=== PATIENT | male | born 1990 | race Caucasian/White ===

== ENCOUNTER → 2019-07-27 | Emergency (ER) | payer MEDICAID ==
[~2019-07-27] VITALS: Ht 167.6 cm; Wt 86.0 kg
[~2019-07-27] MED LIST: ALBU8.5H8 INH; GUAI120L55 PO; PRED20TA PO
[2019-07-27 05:59] LABS: BASOPHILS % (AUTO) 0.2 % (0-1); EOSINOPHILS % (AUTO) 0.4 % (0-6); HEMATOCRIT 46.1 % (42.0-52.0); HEMOGLOBIN 15.7 g/dl (14.0-17.9); LYMPHOCYTES # (AUTO) 0.9 X10'3 (1.1-4.8); LYMPHOCYTES % (AUTO) 11.2 % (21-51); MEAN CORPUSCULAR HEMOGLOBIN 27.7 PG (27.0-31.0); MEAN CORPUSCULAR VOLUME 81.4 FL (78-98); MEAN PLATELET VOLUME 7.9 FL (7.4-10.4); MONOCYTES # (AUTO) 0.6 X10'3 (0-0.9); MONOCYTES % (AUTO) 7.6 % (2-12); NEUTROPHILS # (AUTO) 6.2 X10'3 (1.8-7.7); NEUTROPHILS % (AUTO) 80.6 % (42-75); PLATELET COUNT 230 X10'3 (140-440); RED BLOOD COUNT 5.66 X10'6 (4.70-6.10); RED CELL DISTRIBUTION WIDTH 14.7 % (11.5-14.5); WHITE BLOOD COUNT 7.7 X10'3 (4.5-11.0)
[2019-07-27 06:13] LABS: D-DIMER 0.34 MG/L FEU (0-0.50)
[2019-07-27 06:21] LABS: ALANINE AMINOTRANSFERASE 25 U/L (12-78); ALBUMIN 4.6 G/DL (3.4-5.0); ALBUMIN/GLOBULIN RATIO 1.2 (1.1-1.5); ALKALINE PHOSPHATASE 101 IU/L (46-116); ANION GAP 10 (8-16); ASPARTATE AMINO TRANSFERASE 22 U/L (10-37); BILIRUBIN,TOTAL 0.3 MG/DL (0.1-1.0); BLOOD UREA NITROGEN 11 MG/DL (7-18); BUN/CREATININE RATIO 9.8 (5.4-32.0); CALCIUM 9.7 MG/DL (8.5-10.1); CHLORIDE 106 MMOL/L (99-107); CREATININE 1.12 MG/DL (0.60-1.10); GLUCOSE 101 MG/DL (70-104); POTASSIUM 3.6 MMOL/L (3.5-5.1); SODIUM 141 MMOL/L (135-145); TOTAL CARBON DIOXIDE 24.7 MMOL/L (24-32); TOTAL PROTEIN 8.6 G/DL (6.4-8.2); eGFR 79 ML/MIN
[2019-07-27 07:05] VITALS: BP 142/86
== END | disposition home or self-care (01) ==
LOC: ER 04:41
DX: J20.9 Acute bronchitis, unspecified (principal); R00.0 Tachycardia, unspecified; Z72.89 Other problems related to lifestyle; Z88.8 Allergy status to other drugs, medicaments and biological substances; Z79.899 Other long term (current) drug therapy
CPT/HCPCS: 36415; 71045; 80053; 84484; 85025; 85379; 93005; 99285

== ENCOUNTER 2019-07-30 19:22 | Emergency (ER) | payer MEDICAID ==
[~2019-07-30] VITALS: Ht 170.2 cm; Wt 88.6 kg
[~2019-07-30 19:22] MED LIST changes: -GUAI120L55 PO
[2019-07-30 19:35] VITALS: BP 181/104
[2019-07-30] MEDS ORDERED: GUAI120L55 PO (20:30)
== END 2019-07-30 20:49 | disposition home or self-care (01) ==
LOC: ER 19:22
DX: B34.9 Viral infection, unspecified (principal); J02.9 Acute pharyngitis, unspecified; R05 Cough; R50.9 Fever, unspecified; R19.7 Diarrhea, unspecified; R00.0 Tachycardia, unspecified; R11.0 Nausea; Z72.89 Other problems related to lifestyle; Z88.8 Allergy status to other drugs, medicaments and biological substances; Z79.899 Other long term (current) drug therapy
CPT/HCPCS: 99282

== ENCOUNTER 2020-02-14 14:04 | Emergency (ER) | payer MEDICAID, OTHER ==
[~2020-02-14] VITALS: Ht 170.2 cm; Wt 89.0 kg
[~2020-02-14 14:04] MED LIST changes: +GUAI120L55 PO; -PRED20TA PO
[2020-02-14 14:35] VITALS: BP 154/98
== END 2020-02-14 16:55 | disposition home or self-care (01) ==
LOC: ER 14:05
DX: S61.411A Laceration without foreign body of right hand, initial encounter (principal); Z72.89 Other problems related to lifestyle; Z88.8 Allergy status to other drugs, medicaments and biological substances; Z79.899 Other long term (current) drug therapy; W19.XXXA Unspecified fall, initial encounter; Y93.89 Activity, other specified; Y92.89 Other specified places as the place of occurrence of the external cause; Y99.8 Other external cause status
CPT/HCPCS: 99281

== ENCOUNTER 2020-02-28 11:03 | Emergency (ER) | payer MEDICAID ==
[~2020-02-28] VITALS: Ht 170.2 cm; Wt 86.0 kg
[2020-02-28 11:06] VITALS: BP 163/92
[2020-02-28] MEDS ORDERED: dexamethasone sod phosphate 10mg/ml inj IM STA (13:12)
== END 2020-02-28 17:26 | disposition home or self-care (01) ==
LOC: ER 11:04
DX: G62.9 Polyneuropathy, unspecified (principal); M62.838 Other muscle spasm; M79.601 Pain in right arm; R20.0 Anesthesia of skin; Z72.89 Other problems related to lifestyle; Z88.1 Allergy status to other antibiotic agents; Z88.6 Allergy status to analgesic agent; Z79.899 Other long term (current) drug therapy
CPT/HCPCS: 96372; 99283; J1100

== ENCOUNTER 2020-06-18 12:42 | Outpatient (CLI) | payer MEDICAID | END 2020-06-18 23:59 | disposition home or self-care (01) | LOC: CARD DIAG 12:42 | PROVIDERS: ATTEND Family Medicine | DX: I08.0 Rheumatic disorders of both mitral and aortic valves (principal); R00.2 Palpitations | CPT/HCPCS: 93306 ==

== ENCOUNTER 2020-10-07 23:49 | Emergency (ER) | payer MEDICAID ==
[~2020-10-07] VITALS: Ht 167.6 cm; Wt 92.5 kg
[2020-10-08] MEDS ORDERED: acetaminophen 325mg tablet PO ONE (00:20)
[2020-10-08] MEDS ORDERED: normal saline 1000ML IV soln IV ONE (02:05)
[2020-10-08 02:35] LABS: BASOPHILS % (AUTO) 0.3 % (0-1); EOSINOPHILS # (AUTO) 0.1 X10'3 (0-0.9); EOSINOPHILS % (AUTO) 4.6 % (0-6); HEMATOCRIT 39.7 % (42.0-52.0); HEMOGLOBIN 13.5 g/dl (14.0-17.9); LYMPHOCYTES # (AUTO) 0.6 X10'3 (1.1-4.8); LYMPHOCYTES % (AUTO) 19.1 % (21-51); MEAN CORPUSCULAR HEMOGLOBIN 30.9 PG (27.0-31.0); MEAN CORPUSCULAR HGB CONC 34.1 g/dL (33.0-36.5); MEAN CORPUSCULAR VOLUME 90.6 FL (78-98); MEAN PLATELET VOLUME 7.6 FL (7.4-10.4); MONOCYTES # (AUTO) 0.5 X10'3 (0-0.9); MONOCYTES % (AUTO) 16.8 % (2-12); NEUTROPHILS # (AUTO) 1.7 X10'3 (1.8-7.7); NEUTROPHILS % (AUTO) 59.2 % (42-75); PLATELET COUNT 157 X10'3 (140-440); RED BLOOD COUNT 4.39 X10'6 (4.70-6.10); RED CELL DISTRIBUTION WIDTH 13.4 % (11.5-14.5)
[2020-10-08 02:46] LABS: ALANINE AMINOTRANSFERASE 28 U/L (12-78); ALBUMIN 3.8 G/DL (3.4-5.0); ALBUMIN/GLOBULIN RATIO 1.2 (1.1-1.5); ALKALINE PHOSPHATASE 64 IU/L (46-116); ANION GAP 13 (8-16); ASPARTATE AMINO TRANSFERASE 25 U/L (10-37); BILIRUBIN,TOTAL 0.3 MG/DL (0.1-1.0); BLOOD UREA NITROGEN 17 MG/DL (7-18); BUN/CREATININE RATIO 14.8 (5.4-32.0); CALCIUM 8.9 MG/DL (8.5-10.1); CHLORIDE 103 MMOL/L (99-107); CREATININE 1.15 MG/DL (0.60-1.10); GLUCOSE 95 MG/DL (70-104); MAGNESIUM 1.8 MG/DL (1.5-2.4); POTASSIUM 3.3 MMOL/L (3.5-5.1); SODIUM 141 MMOL/L (135-145); TOTAL CARBON DIOXIDE 24.6 MMOL/L (24-32); TOTAL PROTEIN 7.1 G/DL (6.4-8.2); eGFR 76 ML/MIN
[2020-10-08 03:07] LABS: PLATELET ESTIMATE NORMAL; TOTAL CELLS COUNTED 100
== END 2020-10-08 03:43 | disposition home or self-care (01) ==
LOC: ER 23:50
DX: B34.9 Viral infection, unspecified (principal); Z20.822 Contact with and (suspected) exposure to COVID-19; R50.9 Fever, unspecified; R11.0 Nausea; R10.31 Right lower quadrant pain; Z72.89 Other problems related to lifestyle; Z88.6 Allergy status to analgesic agent; Z88.8 Allergy status to other drugs, medicaments and biological substances; Z79.899 Other long term (current) drug therapy
CPT/HCPCS: 36415; 74176; 80053; 83605; 83735; 84145; 85007; 85025; 87040; 87635; 99284; C9803; J7030

== ENCOUNTER 2020-12-22 04:43 | Emergency (ER) | payer MEDICAID ==
[~2020-12-22] VITALS: Ht 167.6 cm; Wt 95.0 kg
--- NOTE | 2020-12-22 04:47 | NUR ---
posion control contacted - they recommend the following: labs - cbc, cmp, utox, ASA, APAP, give charcoal watch for hypotension and bradycardia supportive care, if symptomatic, give glucagon 5mg bolus if needed, fluids and pressors can be given also. ekg as well
[2020-12-22] MEDS ORDERED: charcoal, activated 50 GM/240 ML bottle PO ONE (04:55)
[2020-12-22 05:26] LABS: ALANINE AMINOTRANSFERASE 58 U/L (12-78); ALBUMIN 3.9 G/DL (3.4-5.0); ALBUMIN/GLOBULIN RATIO 1.2 (1.1-1.5); ALKALINE PHOSPHATASE 71 IU/L (46-116); ANION GAP 7 (8-16); ASPARTATE AMINO TRANSFERASE 23 U/L (10-37); BILIRUBIN,TOTAL 0.2 MG/DL (0.1-1.0); BLOOD UREA NITROGEN 17 MG/DL (7-18); BUN/CREATININE RATIO 17.5 (5.4-32.0); CALCIUM 9.5 MG/DL (8.5-10.1); CHLORIDE 108 MMOL/L (99-107); CREATININE 0.97 MG/DL (0.60-1.10); GLUCOSE 84 MG/DL (70-104); POTASSIUM 3.8 MMOL/L (3.5-5.1); SODIUM 141 MMOL/L (135-145); TOTAL CARBON DIOXIDE 26.2 MMOL/L (24-32); TOTAL PROTEIN 7.2 G/DL (6.4-8.2); eGFR > 90 ML/MIN
[2020-12-22 05:30] LABS: BASOPHILS % (AUTO) 0.3 % (0-1); EOSINOPHILS # (AUTO) 0.2 X10'3 (0-0.9); EOSINOPHILS % (AUTO) 2.4 % (0-6); HEMATOCRIT 42.3 % (42.0-52.0); HEMOGLOBIN 14.5 g/dl (14.0-17.9); LYMPHOCYTES # (AUTO) 1.7 X10'3 (1.1-4.8); LYMPHOCYTES % (AUTO) 24.8 % (21-51); MEAN CORPUSCULAR HEMOGLOBIN 29.9 PG (27.0-31.0); MEAN CORPUSCULAR HGB CONC 34.3 g/dL (33.0-36.5); MEAN CORPUSCULAR VOLUME 86.9 FL (78-98); MEAN PLATELET VOLUME 7.8 FL (7.4-10.4); MONOCYTES # (AUTO) 0.7 X10'3 (0-0.9); MONOCYTES % (AUTO) 9.9 % (2-12); NEUTROPHILS # (AUTO) 4.4 X10'3 (1.8-7.7); NEUTROPHILS % (AUTO) 62.6 % (42-75); PLATELET COUNT 236 X10'3 (140-440); RED BLOOD COUNT 4.87 X10'6 (4.70-6.10); RED CELL DISTRIBUTION WIDTH 12.8 % (11.5-14.5)
[2020-12-22 05:37] LABS: ETHANOL < 0.010 GM/DL (0.0-0.010)
[2020-12-22 05:38] LABS: ACETAMINOPHEN < 2.0 UG/ML (10-30)
[2020-12-22 06:37] LABS: URINE AMPHETAMINE SCREEN NEGATIVE (Neg); URINE BARBITUATE SCREEN NEGATIVE (Neg); URINE BENZODIAZEPINES SCREEN NEGATIVE (Neg); URINE CANNABINOID SCREEN NEGATIVE (Neg); URINE COCAINE SCREEN NEGATIVE (Neg); URINE METHADONE SCREEN NEGATIVE (Neg); URINE OPIATE SCREEN NEGATIVE (Neg); URINE PHENCYCLIDINE SCREEN NEGATIVE (Neg)
--- NOTE | 2020-12-22 08:12 | NUR ---
SPOKE TO AURELIO DALEY FOR UPDATE ON PT ,LAB WORK UP AND EKGG.INFORMED THAT PT BP IS 108/68 ,HR 57,SPO2 99ON RA,R 14-15.NO SEIZURE ACTIVITY,EKG INTERPERATION DISCUSSED ORDER TO REPEAT EKG RGT NOW AND IF QRS IS ABOVE 120 GIVE 2 AMP OF BICARB..OBSERVE THE PT FOR Q 6HR IF EVERTHING IS FINE PT DO NOT NEED FURTHER OBSERVATION. GIVE IV FLUIDS AND GLUCAGON FOR LOW HR AND LOW BP,BUT RGT NOW PT IS STABLE AND NO NEED FOR FLUDS OR GLUCAGON. WILL FOLLOW THE ORDERS.
--- NOTE | 2020-12-22 09:34 | NUR ---
DR CARTER ASSESSING THE PT RGT NOW ,WILL CONT TO MONITOR,PT IN HALLWAY WE HAD THE EMERGENT PT.
--- NOTE | 2020-12-22 09:35 | NUR ---
QRS 64 NO BICARB NEEDED .WILL CONT TO MONITOR.
--- NOTE | 2020-12-22 10:50 | NUR ---
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 Patient does state that he is depressed and feels like he just needs some medication to help with depression. [facility] has place 5150 on patient. Patient stated that he would like the information shared to the accepting facility that he is a transgender. I stated I would relay the message and make sure the this was shared is SBAR reports. Patient resting comfortably, has no other needs at this time.
--- NOTE | 2020-12-22 12:10 | NUR ---
Patient's aunt at bedside. No distress observed. Continue to monitor.
--- NOTE | 2020-12-22 13:30 | NUR ---
Patient eating lunch. No distress observed. Continue to monitor.
--- NOTE | 2020-12-22 15:10 | NUR ---
Patient awake and laying in bed. RN spoke to patient. Patient denies suicidal ideation and says he is doing better. Patient is upset over the recent breakup with his girlfriend. No distress observed at this time.
--- NOTE | 2020-12-22 16:55 | NUR ---
RN spoke to Dr Ramirez about the order for an EKG. Need comparison. Heart rate is 46. RN spoke to patient and he does not feel dizzy. RN advised patient to report any changes, like dizziness, feeling faint. Patient verbalized understanding. Dr Ramirez aware patient is asymptomatic at this time. Continue to monitor.
--- NOTE | 2020-12-22 20:51 | NUR ---
PCT here to escort patient up to [facility]. Pt denies dizziness. Behavior appropriate and cooperative. Patient belongings given to PCT along with copy of 5150 and med rec. Last set of vital signs documented.
[2020-12-22 21:00] VITALS: BP 121/72
[2020-12-22] MEDS ORDERED: LITH300C PO (21:57)
[2020-12-22] MEDS ORDERED: PROP10TA10 PO (21:57)
[2020-12-22] MEDS ORDERED: TEST200V10 IM (21:57)
[2020-12-22] MEDS ORDERED: OLAN15TA3 PO (21:57)
[2020-12-22] MEDS ORDERED: LISI10TA27 PO (21:57)
== END 2020-12-22 21:09 ==
LOC: ER 04:44
DX: T44.7X2A Poisoning by beta-adrenoreceptor antagonists, intentional self-harm, initial encounter (principal); Z20.822 Contact with and (suspected) exposure to COVID-19; R45.851 Suicidal ideations; I10 Essential (primary) hypertension; Z72.89 Other problems related to lifestyle; Z88.6 Allergy status to analgesic agent; Z88.8 Allergy status to other drugs, medicaments and biological substances; Z79.899 Other long term (current) drug therapy; Y92.89 Other specified places as the place of occurrence of the external cause
CPT/HCPCS: 36415; 80053; 80305; 80320; 80329; 84443; 85025; 87635; 93005; 99285; C9803

== ENCOUNTER 2021-01-04 08:34 | Inpatient (IN) | payer MEDICAID ==
[~2021-01-04] VITALS: Ht 167.6 cm; Wt 85.9 kg
[~2021-01-04 08:34] MED LIST changes: -ALBU8.5H8 INH; -GUAI120L55 PO; +LISI10TA27 PO; +LITH300C PO; +LURA60TA PO; +TEST200V10 IM
[2021-01-04 10:19] LABS: EOSINOPHILS # (AUTO) 0.1 X10'3 (0-0.9); HEMOGLOBIN 13.9 g/dl (14.0-17.9); LYMPHOCYTES # (AUTO) 0.5 X10'3 (1.1-4.8); MEAN PLATELET VOLUME 8.4 FL (7.4-10.4); NEUTROPHILS # (AUTO) 1.9 X10'3 (1.8-7.7); NEUTROPHILS % (AUTO) 66.8 % (42-75); WHITE BLOOD COUNT 2.8 X10'3 (4.5-11.0)
[2021-01-04 10:20] LABS: BASOPHILS % (AUTO) 0.1 % (0-1); EOSINOPHILS % (AUTO) 3.9 % (0-6); HEMATOCRIT 39.8 % (42.0-52.0); LYMPHOCYTES % (AUTO) 16.8 % (21-51); MEAN CORPUSCULAR HEMOGLOBIN 29.7 PG (27.0-31.0); MEAN CORPUSCULAR VOLUME 84.8 FL (78-98); MONOCYTES # (AUTO) 0.4 X10'3 (0-0.9); MONOCYTES % (AUTO) 12.4 % (2-12); PLATELET COUNT 113 X10'3 (140-440); RED BLOOD COUNT 4.69 X10'6 (4.70-6.10); RED CELL DISTRIBUTION WIDTH 12.6 % (11.5-14.5)
[2021-01-04 10:38] LABS: ANION GAP 9 (8-16); BLOOD UREA NITROGEN 12 MG/DL (7-18); BUN/CREATININE RATIO 10.2 (5.4-32.0); CHLORIDE 106 MMOL/L (99-107); CREATININE 1.18 MG/DL (0.60-1.10); GLUCOSE 92 MG/DL (70-104); POTASSIUM 3.9 MMOL/L (3.5-5.1); SODIUM 139 MMOL/L (135-145); TOTAL CARBON DIOXIDE 23.7 MMOL/L (24-32); eGFR 74 ML/MIN
[2021-01-04 10:39] LABS: ALANINE AMINOTRANSFERASE 78 U/L (12-78); ALBUMIN 3.5 G/DL (3.4-5.0); ALKALINE PHOSPHATASE 73 IU/L (46-116); ASPARTATE AMINO TRANSFERASE 46 U/L (10-37); BILIRUBIN,TOTAL 0.3 MG/DL (0.1-1.0); TOTAL PROTEIN 7.1 G/DL (6.4-8.2)
[2021-01-04 10:58] LABS: TOTAL CELLS COUNTED 100
[2021-01-04 10:59] LABS: PLATELET ESTIMATE DECREASED
[2021-01-04] MEDS ORDERED: normal saline 1000ml 1,000 ML IV ONE (11:05)
[2021-01-04] MEDS ORDERED: HYDROcodone/acetaminophen 5mg/325mg tablet PO PRN (11:40)
[2021-01-04] MEDS ORDERED: morphine 2 MG/ML inj. syringe IV PRN ×2 (11:40)
[2021-01-04] MEDS ORDERED: mag hydrox/Alum hydrox/simeth 30ml oral suspension PO PRN (11:40)
[2021-01-04] MEDS ORDERED: magnesium hydroxide 30ml (MOM) UD suspension PO PRN (11:40)
[2021-01-04] MEDS ORDERED: acetaminophen 325mg tablet PO PRN ×2 (11:40)
[2021-01-04] MEDS ORDERED: ondansetron/PF 4mg/2ml inj IV PRN (11:40)
[2021-01-04] MEDS ORDERED: OLAN10TA73 PO (12:24)
[2021-01-04] MEDS ORDERED: TIZA-189 PO (12:24)
[2021-01-04] MEDS: normal saline 1000ml 1,000 ML IV SCH ×2 (12:54→20:29)
[2021-01-04 13:33] LABS: CLARITY,URINE CLOUDY (Clear); COLOR,URINE YELLOW (Yellow); GLUCOSE, URINE NEGATIVE (Neg); KETONES,URINE TRACE mg/dl (Neg); LEUKOCYTE ESTERASE ,URINE TRACE (Neg); NITRITES, URINE NEGATIVE (Neg); OCCULT BLOOD,URINE NEGATIVE (Neg); PH,URINE 6.5 (4.8-8.0); PROTEIN,URINE NEGATIVE (Neg); UROBILINOGEN,URINE 0.2 E.U/dL (0.2-1.0)
[2021-01-04 13:34] LABS: UA COLLECTION TYPE CLN CATCH MIDSTREAM
[2021-01-04 13:43] LABS: HYALINE CASTS >30 /LPF (NEGATIVE); SQUAMOUS EPITHELIAL CELL,UR MANY /LPF (FEW)
[2021-01-04 13:44] LABS: BACTERIA,URINE 1+ /HPF (Neg); RBC,URINE 0-2 /HPF (0-2); TRANSITIONAL EPI CELLS,URINE FEW /HPF
--- NOTE | 2021-01-04 15:48 | NUR ---
Patient in room ED 8. I have received report from teresa meade rn and had the opportunity to ask questions and assume patient care.
--- NOTE | 2021-01-04 18:15 | NUR ---
received pt into room 3018b, oriented to surroundings, v/s taken, denies pain or itching pt provided regular diet, report given to lucille casey @ bedside
[2021-01-04 18:50] VITALS: BP_SYST 117; BP_SYST 99; BP_DIAS 54; BP_DIAS 69
[2021-01-04] MEDS: docusate sod 100mg capsule PO SCH (20:28)
[2021-01-04] MEDS: tizanidine 4mg tablet PO SCH (20:28)
[2021-01-04 22:00] VITALS: BP 99/54
[2021-01-05 02:00] VITALS: BP 107/62
[2021-01-05 06:00] VITALS: BP 128/62
--- NOTE | 2021-01-05 06:02 | NUR ---
Patient in room PCU 3018. I have received report from DARIANA Villar and had the opportunity to ask questions and assume patient care.
--- NOTE | 2021-01-05 06:05 | NUR ---
Patient in room PCU 3018. I have received report from Jian WESTBROOK and had the opportunity to ask questions and assume patient care.
[2021-01-05 06:13] LABS: ALBUMIN 2.8 G/DL (3.4-5.0); ANION GAP 8 (8-16); BLOOD UREA NITROGEN 9 MG/DL (7-18); BUN/CREATININE RATIO 9.4 (5.4-32.0); CALCIUM 8.3 MG/DL (8.5-10.1); CHLORIDE 111 MMOL/L (99-107); CREATININE 0.96 MG/DL (0.60-1.10); GLUCOSE 94 MG/DL (70-104); POTASSIUM 3.9 MMOL/L (3.5-5.1); SODIUM 142 MMOL/L (135-145); TOTAL CARBON DIOXIDE 22.8 MMOL/L (24-32); eGFR > 90 ML/MIN
--- NOTE | 2021-01-05 06:15 | NUR ---
Problems reprioritized. Patient report given, questions answered & plan of care reviewed with MARIVEL. Addendum: 01/05/21 at 0615 by Vidal Aguilera RN Amended: Links added.
[2021-01-05] MEDS: docusate sod 100mg capsule PO SCH (07:30)
[2021-01-05] MEDS: tizanidine 4mg tablet PO SCH (07:31)
[2021-01-05] MEDS: normal saline 1000ml 1,000 ML IV SCH (07:40)
[2021-01-05] MEDS ORDERED: olanzapine 10mg tablet PO SCH (08:00)
--- NOTE | 2021-01-05 10:50 | NUR ---
PAGER ID: [phone] MESSAGE: Re: David Fernández. Room: [facility]. [place] level 0.7 -[facility] #[phone] -Dr. Fofana paged concerning Pt's [place] level.
[2021-01-05] MEDS ORDERED: LITH150C8 PO (10:56)
--- NOTE | 2021-01-05 12:00 | NUR ---
Pt was stable for DC per physician order. Telemetry removed plus PIV with no redness or inflammation at site. All education and discharge instructions gave to pt and he was able to verbalize back to me. All valuable belonging gathered by the pt and I walked with him to the outside of the lobby and he got in to the grandmother's vehicle.
--- NOTE | 2021-01-05 12:00 | NUR ---
Pt DC'd home with family. Pt alert and oriented with vitals WNL. Per Dr. Fofana; Pt is stable to be DC'd. IV removed, canula intact. Tele-box removed and returned to tele-tech. DC paperwork printed out and gone over with Pt. Allowed Pt to ask questions concerning DC and then answered them. New prescriptions faxed over to [facility] on [address]. Pt's belongings gathered and sent with Pt. Pt wheeled down to lobby in wheelchair. Pt in left in private vehicle for home with family/friend.
[2021-01-10] MEDS ORDERED: TESTOSTERONE CYPIONATE 200 MG/ML VIAL IM SCH (10:00)
== END 2021-01-05 12:07 | disposition home or self-care (01) | DRG 816 ==
LOC: ER 08:36 → ED HOLD 11:42 → PCU 3S 18:06
PROVIDERS: ADMIT Internal Medicine; ATTEND Internal Medicine
DX: T56.894A Toxic effect of other metals, undetermined, initial encounter (principal); N17.9 Acute kidney failure, unspecified; F31.9 Bipolar disorder, unspecified; R21 Rash and other nonspecific skin eruption; R25.1 Tremor, unspecified; I10 Essential (primary) hypertension; Y92.89 Other specified places as the place of occurrence of the external cause; Z79.899 Other long term (current) drug therapy; Z88.8 Allergy status to other drugs, medicaments and biological substances
CPT/HCPCS: 36415; 80048; 80053; 80178; 81001; 84145; 85007; 85025; 93005; 99285; G0378; J7030

== ENCOUNTER 2021-07-17 22:30 | Emergency (ER) | payer MEDICAID ==
[~2021-07-17] VITALS: Ht 167.6 cm; Wt 100.0 kg
[~2021-07-17 22:30] MED LIST changes: +LITH150C8 PO; -LITH300C PO; -LURA60TA PO; +OLAN10TA73 PO; -TEST200V10 IM; +TEST200V33 IM; +TIZA-189 PO
--- NOTE | 2021-07-17 22:32 | NUR ---
PT TOOK 100 ZANAFLEX 8 MG APPROX 45 MINUTES AGO. 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 DO NOT GIVE CHARCOAL IF PT IS ALTERED, UNLESS AIRWAY IS PROTECTED. LABS: URINE TOX, ASPIRIN LEVEL, TYLENOL LEVEL, CMP, LIVER PANEL. REPEAT CMP IN 6 HOURS LIVER MAY BE AFFECTED. INTUBATION NEEDED, CONSTANT CARDIAC MONITORING, EKG. MAY TRY NARCAN, OCCASIONALLY EFFECTIVE. NOREPINEPHRINE IS PRESSOR OF CHOICE FOR HYPOTENSION, IF NEEDED. MONITOR PT FOR 8-12 HOURS, MAY DISCHARGE AFTER THAT IF PT IS ASYMPTOMATIC Addendum: 07/17/21 at 2356 by RPRATHER PT IS PRESCRIBED ZANAFLEX 2 MG TABS, NOT 8 MG
[2021-07-17] MEDS ORDERED: normal saline 1000ml 1,000 ML IV ONE (23:15)
--- NOTE | 2021-07-17 23:15 | NUR ---
PT WAS RESISTING CARE AND YELLING/SCREAMING/CRYING WHILE ATTEMPTING TO CLIMB OUT OF BED. PT PUT IN SOFT NON-BEHAVIORAL RESTRAINTS AFTER RECIEVING ORDER FROM DR TABARES. PT CSM DISTALLY INTACT IN ALL EXTREMITIES. PT EXTREMELY LETHARGIC AND UNABLE TO FOLLOW DIRECTIONS AT THIS TIME.
--- NOTE | 2021-07-17 23:23 | NUR ---
Temp scales placed to monitor temp and fluid output. No indication of trauma in xochitl area, thighs, or lower abdomen.
[2021-07-17 23:42] LABS: BASOPHILS % (AUTO) 0.3 % (0-1); EOSINOPHILS # (AUTO) 0.1 X10'3 (0-0.9); EOSINOPHILS % (AUTO) 0.9 % (0-6); HEMATOCRIT 41.5 % (42.0-52.0); HEMOGLOBIN 14.1 g/dl (14.0-17.9); LYMPHOCYTES # (AUTO) 3.3 X10'3 (1.1-4.8); LYMPHOCYTES % (AUTO) 28.9 % (21-51); MEAN CORPUSCULAR HEMOGLOBIN 30.7 PG (27.0-31.0); MEAN CORPUSCULAR HGB CONC 33.9 g/dL (33.0-36.5); MEAN CORPUSCULAR VOLUME 90.4 FL (78-98); MONOCYTES % (AUTO) 9.1 % (2-12); NEUTROPHILS # (AUTO) 6.9 X10'3 (1.8-7.7); NEUTROPHILS % (AUTO) 60.8 % (42-75); PLATELET COUNT 264 X10'3 (140-440); RED BLOOD COUNT 4.59 X10'6 (4.70-6.10); RED CELL DISTRIBUTION WIDTH 13.9 % (11.5-14.5); WHITE BLOOD COUNT 11.3 X10'3 (4.5-11.0)
[2021-07-17 23:49] LABS: ALANINE AMINOTRANSFERASE 23 U/L (12-78); ALBUMIN/GLOBULIN RATIO 1.2 (1.1-1.5); ALKALINE PHOSPHATASE 58 IU/L (46-116); ANION GAP 18 (8-16); BILIRUBIN,TOTAL 0.2 MG/DL (0.1-1.0); BLOOD UREA NITROGEN 14 MG/DL (7-18); BUN/CREATININE RATIO 14.3 (5.4-32.0); CALCIUM 9.1 MG/DL (8.5-10.1); CHLORIDE 105 MMOL/L (99-107); CREATININE 0.98 MG/DL (0.60-1.10); GLUCOSE 231 MG/DL (70-104); SODIUM 144 MMOL/L (135-145); TOTAL CARBON DIOXIDE 21.4 MMOL/L (24-32); TOTAL PROTEIN 7.3 G/DL (6.4-8.2); eGFR 90 ML/MIN
[2021-07-17 23:51] LABS: ASPARTATE AMINO TRANSFERASE 27 U/L (10-37); POTASSIUM 4.6 MMOL/L (3.5-5.1)
[2021-07-17 23:52] LABS: ACETAMINOPHEN < 2.0 UG/ML (10-30)
[2021-07-18 00:15] LABS: URINE AMPHETAMINE SCREEN NEGATIVE (Neg); URINE BARBITUATE SCREEN NEGATIVE (Neg); URINE BENZODIAZEPINES SCREEN NEGATIVE (Neg); URINE CANNABINOID SCREEN NEGATIVE (Neg); URINE COCAINE SCREEN NEGATIVE (Neg); URINE METHADONE SCREEN NEGATIVE (Neg); URINE OPIATE SCREEN NEGATIVE (Neg); URINE PHENCYCLIDINE SCREEN NEGATIVE (Neg)
[2021-07-18] MEDS ORDERED: METH20CP12 PO (04:46)
[2021-07-18] MEDS ORDERED: CARI1.5C PO (04:46)
[2021-07-18] MEDS ORDERED: DIVA250T15 PO (04:46)
[2021-07-18] MEDS ORDERED: LISI20TA28 PO (04:46)
[2021-07-18 05:41] LABS: ALANINE AMINOTRANSFERASE 23 U/L (12-78); ALBUMIN 3.8 G/DL (3.4-5.0); ALBUMIN/GLOBULIN RATIO 1.2 (1.1-1.5); ALKALINE PHOSPHATASE 56 IU/L (46-116); ANION GAP 11 (8-16); ASPARTATE AMINO TRANSFERASE 18 U/L (10-37); BILIRUBIN,TOTAL 0.3 MG/DL (0.1-1.0); BLOOD UREA NITROGEN 13 MG/DL (7-18); BUN/CREATININE RATIO 13.3 (5.4-32.0); CALCIUM 9.2 MG/DL (8.5-10.1); CHLORIDE 108 MMOL/L (99-107); CREATININE 0.98 MG/DL (0.60-1.10); GLUCOSE 131 MG/DL (70-104); POTASSIUM 4.7 MMOL/L (3.5-5.1); SODIUM 143 MMOL/L (135-145); TOTAL PROTEIN 6.9 G/DL (6.4-8.2); VALPROATE 18 UG/ML (50-100); eGFR 90 ML/MIN
--- NOTE | 2021-07-18 06:09 | NUR ---
UPDATED POISON CONTROL OF PTS CONDITION. RECENT VS ARE HR 47, B/P 135/87, O2 99%. PT CONTINUES TO BE DROWSY BUT MORE ALERT THAN ADMISSION. POISON CONTROL RECOMMENDS MONITORING PT UNTIL BRADYCARDIA AND DROWSINESS ARE RESOLVED.
--- NOTE | 2021-07-18 07:20 | NUR ---
Patient ambulates to restroom without assistance; gait steady.
--- NOTE | 2021-07-18 07:45 | NUR ---
Patient's aunt at bedside; will bring patient's home med, methylphenidate per pharmacy request.
[2021-07-18] MEDS: tizanidine 4mg tablet PO SCH ×2 (08:00→20:11)
[2021-07-18] MEDS: lisinopril 5mg tablet PO SCH (08:00)
[2021-07-18] MEDS: divalproex 250mg tablet, delayed-release PO SCH ×2 (08:23→20:11)
[2021-07-18] MEDS: olanzapine 10mg tablet PO SCH (08:23)
[2021-07-18] MEDS: CARIPRAZINE 1.5 MG CAPSULE PO SCH (08:23)
[2021-07-18] MEDS ORDERED: TESTOSTERONE CYPIONATE 200 MG/ML VIAL IM SCH (10:00)
[2021-07-18] MEDS: METHYLPHENIDATE HCL PO SCH (11:06)
--- NOTE | 2021-07-18 12:27 | NUR ---
relieving RN for lunch, pt is sleeping, easily arouseable, light snoring resp when sleeping
--- NOTE | 2021-07-18 13:32 | NUR ---
Poison control given update.
--- NOTE | 2021-07-18 16:08 | NUR ---
Pt. ambulated over from the Main ER accompainied by nurse and his Aunt. He was able to independently change into green scrubs and was provided a snack. Per report, pt's heart rate has been WNL, and he has not exhibited any further bradycardia. Pt. continues to be monitored by [employer]end control, will continue to monitor closely.
--- NOTE | 2021-07-18 16:32 | NUR ---
[facility] at bedside evaluating patient at this time. 1:1 completed previously at bedside by this marine underwriter, pt. is currently denying any S/I. When questioned by this marine underwriter regarding his overdose attempt, pt. states, "I was manic at the time." He denies any A/V/DE [place] CRUZ and no delusional statements were made. Pt. reports he is hopeful that he can return home, he currently lives with his grandmother. Pt. presents as drowsy, but is A&O and is able to answer questions appropriately, howerver provides minimal responses. Will continue to monitor closely.
--- NOTE | 2021-07-18 18:01 | NUR ---
Pt. was placed on a MH hold. Pt's Aunt is at bedside visiting with pt. at this time.
--- NOTE | 2021-07-18 18:30 | NUR ---
Assumed care of patient finishing dinner. He denies needs at this time.
--- NOTE | 2021-07-18 20:35 | NUR ---
Patient accepted his medication, and has now laid down to sleep.
--- NOTE | 2021-07-18 21:03 | NUR ---
Received call from [facility]. They are looking at patient, but need UA results, including negative results. They will call later.
--- NOTE | 2021-07-18 21:15 | NUR ---
UA sent to lab.
[2021-07-18 21:24] LABS: CLARITY,URINE CLEAR (Clear); COLOR,URINE YELLOW (Yellow); GLUCOSE, URINE NEGATIVE (Neg); KETONES,URINE NEGATIVE (Neg); LEUKOCYTE ESTERASE ,URINE SMALL (Neg); NITRITES, URINE NEGATIVE (Neg); OCCULT BLOOD,URINE NEGATIVE (Neg); PH,URINE 6.5 (4.8-8.0); PROTEIN,URINE NEGATIVE (Neg); UROBILINOGEN,URINE 0.2 E.U/dL (0.2-1.0)
[2021-07-18 21:34] LABS: UA COLLECTION TYPE CLN CATCH MIDSTREAM
[2021-07-18 21:36] LABS: RBC,URINE 0-2 /HPF (0-2)
[2021-07-18 21:37] LABS: BACTERIA,URINE FEW /HPF (Neg); MUCUS STRANDS FEW /LPF (Neg); SQUAMOUS EPITHELIAL CELL,UR NONE SEEN /LPF (FEW); WBC CLUMPS,URINE FEW /HPF (NEGATIVE)
--- NOTE | 2021-07-18 21:41 | NUR ---
Patient accepted to [facility]. 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
--- NOTE | 2021-07-18 22:35 | NUR ---
Patient is sleeping on his right side. Resp. unlabored. No s/s of distress.
--- NOTE | 2021-07-19 00:30 | NUR ---
Patient appears to be sleeping. No distress noted.
--- NOTE | 2021-07-19 04:18 | NUR ---
Patient observed sleeping. No distress noted.
--- NOTE | 2021-07-19 06:28 | NUR ---
Patient sleeping on right side. No distress observed. continue to monitor.
[2021-07-19] MEDS: tizanidine 4mg tablet PO SCH ×3 (06:44→20:03)
[2021-07-19] MEDS: lisinopril 5mg tablet PO SCH (08:00)
[2021-07-19] MEDS: olanzapine 10mg tablet PO SCH (08:00)
--- NOTE | 2021-07-19 08:06 | NUR ---
Patient eating breakfast. No distress observed. Continue to monitor.
[2021-07-19] MEDS: METHYLPHENIDATE HCL PO SCH (08:31)
[2021-07-19] MEDS: divalproex 250mg tablet, delayed-release PO SCH ×2 (08:33→20:03)
[2021-07-19] MEDS: CARIPRAZINE 1.5 MG CAPSULE PO SCH (08:33)
[2021-07-19] MEDS: cephalexin 250mg capsule PO SCH ×2 (08:39→20:03)
--- NOTE | 2021-07-19 10:02 | NUR ---
Patient sleeping supine. No distress observed. Continue to monitor.
[2021-07-19] MEDS ORDERED: ibuprofen tablet 400 MG TABLET PO ONE (11:55)
--- NOTE | 2021-07-19 12:01 | NUR ---
Patient eating lunch. No distress observed. Continue to monitor.
--- NOTE | 2021-07-19 13:03 | NUR ---
Patient's mom brought patient clothes and books. No distress observed. Continue to monitor.
--- NOTE | 2021-07-19 13:32 | NUR ---
[facility] no longer has a bed for patient due to switching around rooms. Patient's packet sent to [facility]. Patient is aware. Continue to monitor.
[2021-07-19 15:21] LABS: URINE HCG NEGATIVE
--- NOTE | 2021-07-19 15:25 | NUR ---
Patient awake and sitting up in bed. No distress observed. Continue to monitor.
--- NOTE | 2021-07-19 17:23 | NUR ---
Patient sleeping supine. No distress observed. Continue to monitor.
--- NOTE | 2021-07-19 19:05 | NUR ---
Received patient on the unit in no obvious distress. No physical complaint made. Patient is breathing spontanously on room air. Patient last bowel movement was earlier today. Patient rates anxiety1/10 and depression 3/10. Patient denies having any suicidal ideation at this time.
--- NOTE | 2021-07-19 21:35 | NUR ---
Brittany Love called to get a nurse to nurse report same was given.
--- NOTE | 2021-07-19 22:05 | NUR ---
[facility] called to inform us that the patient get accepted at [facility]. They will come for him at 10: 00 am
--- NOTE | 2021-07-20 01:04 | NUR ---
Patient asleep but easily arouse. No obvious distress noted. Observation ongoing.
--- NOTE | 2021-07-20 03:12 | NUR ---
PT APPEARS TO BE ASLEEP, NO SIGNS OF DISTRESS AT THIS TIME, EVEN UNLABORED RESPIRATIONS
--- NOTE | 2021-07-20 04:26 | NUR ---
Patient asleep but easily arouse. No obvious distress noted. Observation ongoing.
--- NOTE | 2021-07-20 05:52 | NUR ---
Patient asleep but easily arouse. No physical distress noted. Observation ongoing.
--- NOTE | 2021-07-20 06:30 | NUR ---
Pt. appears to be sleeping, no s/sx of distress. Observation continues.
--- NOTE | 2021-07-20 07:30 | NUR ---
Pt. reported being admitted d/t" suicide attempt" but denies current SI. Pt denies HI, A/VH, pt. plans to discharge to [facility] today. Pt. continues on PO ABX Keflex for UTI, pt. denies dysuria, but reported loose stool yesterday. Provider to be notified; pending.
[2021-07-20] MEDS: METHYLPHENIDATE HCL PO SCH (07:35)
[2021-07-20] MEDS: cephalexin 250mg capsule PO SCH (07:36)
[2021-07-20] MEDS: tizanidine 4mg tablet PO SCH (07:36)
[2021-07-20] MEDS: divalproex 250mg tablet, delayed-release PO SCH (07:36)
[2021-07-20] MEDS: lisinopril 5mg tablet PO SCH (07:37)
[2021-07-20] MEDS: CARIPRAZINE 1.5 MG CAPSULE PO SCH (07:37)
[2021-07-20] MEDS: olanzapine 10mg tablet PO SCH (07:46)
--- NOTE | 2021-07-20 07:47 | NUR ---
Pt. awake to recieve morning medications, refused Zyprexia stating "I dont take that medicine in the morning at home, I take it at night" underwriter solicitation director will discuss with provider, and during nurse to nurse handoff, in addition, pt on PO keflex without probiotic for GI health, will discuss with provider. Pt. reports X1 episode of loose stool yesterday.
[2021-07-20] MEDS ORDERED: lactobacillus acidophilus cap PO ONE (09:00)
--- NOTE | 2021-07-20 09:05 | NUR ---
N.O recieved for probiotic BID for 10 days, and one time order to start now.
--- NOTE | 2021-07-20 09:50 | NUR ---
Pt. awake sitting on his bed reading a book, no s/sx of distress observed, N.O probiotic started zero ASE's found.
--- NOTE | 2021-07-20 10:00 | NUR ---
Recieved phone call from Eliza @ [facility] re pt. DC, pt. to be picked up today at 1030 with destination of [facility].
--- NOTE | 2021-07-20 10:19 | NUR ---
Recieved second call requesting ethanol level to be checked prior to p/u. Sppke tp provider and recieved STAT lab order; pending draw.
--- NOTE | 2021-07-20 10:21 | NUR ---
Taker Off here to p/u pt. lab has not drawn yet. Taker Off will wait.
--- NOTE | 2021-07-20 10:50 | NUR ---
Pt. had his blood drawn and DC from unit with class a regional drivers and security @1050, pt. ambulated off unit, all belongings were accounted for and medication being held at [facility] pharmacy was turned over to class a regional drivers as well. Drivers name is Caitlin Preston with [facility].
[2021-07-20 11:14] VITALS: BP 148/70
--- NOTE | 2021-07-20 11:22 | NUR ---
Called [facility] and provided nurse to nurse report to nurse Ayala, accepting provider Oziel Christensen is requesting upto date med rec. and results of ETOH lab. Fax # is [phone] Attn Lucy. Lab pending med rec. to be sent now.
[2021-07-20] MEDS ORDERED: lactobacillus rhamnosus 10,000 MMU CELLS/CAPSULE PO SCH (20:00)
== END 2021-07-20 10:50 ==
LOC: ER 22:30
DX: T42.8X2A Poisoning by antiparkinsonism drugs and other central muscle-tone depressants, intentional self-harm, initial encounter (principal); Y92.89 Other specified places as the place of occurrence of the external cause; I10 Essential (primary) hypertension; F31.9 Bipolar disorder, unspecified; Z88.6 Allergy status to analgesic agent; Z79.899 Other long term (current) drug therapy; Z20.822 Contact with and (suspected) exposure to COVID-19
CPT/HCPCS: 36415; 80053; 80164; 80305; 80320; 80329; 81001; 84443; 85025; 87635; 93005; 96360; 96361; 96372; 99291; C9803; J7030; 81025; Z7610

== ENCOUNTER 2024-06-05 15:45 | Emergency (ER) | payer MEDICAID ==
[~2024-06-05] VITALS: Ht 165.1 cm; Wt 105.7 kg
[~2024-06-05 15:45] MED LIST changes: +CARI1.5C PO; +DIVA250T15 PO; -LISI10TA27 PO; +LISI20TA28 PO; -LITH150C8 PO; +METH20CP12 PO
[2024-06-05 15:59] VITALS: TEMP 99
[2024-06-05 16:52] LABS: BASOPHILS % (AUTO) 0.5 % (0-1); EOSINOPHILS # (AUTO) 0.1 X10'3 (0-0.9); EOSINOPHILS % (AUTO) 0.7 % (0-6); HEMATOCRIT 46.3 % (42.0-52.0); HEMOGLOBIN 15.8 g/dl (14.0-17.9); LYMPHOCYTES % (AUTO) 27.2 % (21-51); MEAN CORPUSCULAR HEMOGLOBIN 30.1 PG (27.0-31.0); MEAN CORPUSCULAR HGB CONC 34.2 g/dL (33.0-36.5); MEAN CORPUSCULAR VOLUME 88.2 FL (78-98); MEAN PLATELET VOLUME 7.6 FL (7.4-10.4); MONOCYTES # (AUTO) 0.6 X10'3 (0-0.9); MONOCYTES % (AUTO) 8.9 % (2-12); NEUTROPHILS # (AUTO) 4.5 X10'3 (1.8-7.7); NEUTROPHILS % (AUTO) 62.7 % (42-75); PLATELET COUNT 255 X10'3 (140-440); RED BLOOD COUNT 5.25 X10'6 (4.70-6.10); RED CELL DISTRIBUTION WIDTH 13.6 % (11.5-14.5); WHITE BLOOD COUNT 7.2 X10'3 (4.5-11.0)
[2024-06-05 16:52] LABS: BILIRUBIN,URINE NEGATIVE (Neg); CLARITY,URINE CLEAR (Clear); COLOR,URINE YELLOW (Yellow); GLUCOSE, URINE NEGATIVE (Neg); KETONES,URINE NEGATIVE (Neg); LEUKOCYTE ESTERASE ,URINE NEGATIVE (Neg); NITRITES, URINE NEGATIVE (Neg); OCCULT BLOOD,URINE NEGATIVE (Neg); PROTEIN,URINE NEGATIVE (Neg); UROBILINOGEN,URINE 0.2 E.U/dL (0.2-1.0)
[2024-06-05 16:53] LABS: UA COLLECTION TYPE CLN CATCH MIDSTREAM
[2024-06-05] MEDS: ondansetron/PF 4mg/2ml inj IV ONE (17:10)
[2024-06-05] MEDS: normal saline 1000ml 1,000 ML IV ONE (17:10)
[2024-06-05] MEDS: morphine 4 MG/ML inj SYRINge IV ONE (17:10)
[2024-06-05 17:22] LABS: ALANINE AMINOTRANSFERASE 61 U/L (12-78); ALBUMIN/GLOBULIN RATIO 1.1 (1.1-1.5); ALKALINE PHOSPHATASE 121 IU/L (46-116); ANION GAP 10 (8-16); ASPARTATE AMINO TRANSFERASE 28 U/L (10-37); BILIRUBIN,TOTAL 0.4 MG/DL (0.1-1.0); BLOOD UREA NITROGEN 10 MG/DL (7-18); BUN/CREATININE RATIO 9.9 (10.0-20.0); CALCIUM 9.7 MG/DL (8.5-10.1); CHLORIDE 107 MMOL/L (99-107); CREATININE 1.01 MG/DL (0.60-1.10); GLUCOSE 88 MG/DL (70-104); LIPASE 61 U/L (16-77); POTASSIUM 4.1 MMOL/L (3.5-5.1); SODIUM 142 MMOL/L (135-145); TOTAL CARBON DIOXIDE 24.7 MMOL/L (24-32); TOTAL PROTEIN 7.8 G/DL (6.4-8.2); eCRCL 92 ML/MIN; eGFR 86 ML/MIN
[2024-06-05 19:43] VITALS: BP 159/90; PULSE 89; RESP 18; O2SAT 100
== END 2024-06-05 19:48 | disposition home or self-care (01) ==
LOC: ER 15:47
DX: R10.9 Unspecified abdominal pain (principal); I10 Essential (primary) hypertension; F31.9 Bipolar disorder, unspecified; Z88.6 Allergy status to analgesic agent; Z88.8 Allergy status to other drugs, medicaments and biological substances
CPT/HCPCS: 36415; 74176; 76856; 80053; 81003; 83690; 85025; 93976; 96361; 96374; 96375; 99285; J2270; J2405; J7030

== ENCOUNTER 2024-11-08 19:45 | Emergency (ER) | payer MEDICAID ==
[~2024-11-08] VITALS: Ht 165.1 cm; Wt 106.4 kg
--- NOTE | 2024-11-08 20:41 | Physician Documentation ---
History of Present Illness ~ Chief Complaint: Hypertension Stated Complaint: HIGH B/P Time Seen by MD: 22:31 OK to notify your PCP?: Yes Primary Medical Doctor: [facility] Source: patient Mode of Arrival: POV Exam Limitations: no limitations HPI 34-year-old male presents with hypertension, headaches and blurry vision. He states that he takes Coreg and lisinopril at home for hypertension. He states he has been having headaches for the past month which are worse with activity. He denies any blurry vision at this time. Denies any chest pain or shortness of breath. Medication Reconciliation Allergies: Coded Allergies: crab (Verified Allergy, Severe, 07/19/21) lurasidone (Verified Allergy, Intermediate, RASH/FEVER, 11/08/24) naproxen (Verified Allergy, Unknown, 12/22/20) chlorpromazine (Unverified Adverse Reaction, Unknown, 12/22/20) Scheduled Cariprazine Hydrochloride (Vraylar), 1 CAP PO DAILY, (Reported) Divalproex Sodium (Depakote), 1 TAB PO Q12H, (Reported) Lisinopril (Lisinopril), 15 MG PO DAILY, (Reported) Methylphenidate Hcl (Methylphenidate Er), 1 CAP PO QAM, (Reported) Olanzapine (Olanzapine), 1 TAB PO DAILY, (Reported) Testosterone Cypionate (TESTOSTERONE CYPIONATE 200mg/ml 10ml vial), 0.3 ML IM Q7D, (Reported) Tizanidine Hcl (Zanaflex), 1 TAB PO BID, (Reported) Past Medical History Past Medical History: Hypertension, Bronchitis, *PSYCH*, Bipolar Past Surgical History: noncontributory, hysterectomy Alcohol Use: Occasionally Drug Use: none Lives In: Home Review of Systems All Other Systems at this time: Reviewed and Negative Physical Exam Vital Signs: RN Vital Signs have been reviewed: Yes, Temperature: 97.7, Source: Temporal, Heart Rate: 100, Respiratory Rate: 18, BP: 205/134, Pulse Oximetry: 98, Weight: 106.400 Oxygen Flow Rate: 0 Pulse Oximetry Reflects: adequate oxygenation Physical Exam General: Alert, no distress. HEENT: No injection, moist mucous membranes. Neck: Full range of motion. Respiratory: No respiratory distress, equal chest rise and fall. Chest: No accessory muscle use. Cardiovascular: Regular rate and rhythm. Gastrointestinal: Nondistended. Extremities: Normal range of motion, no deformity. Neurologic: Oriented x4. Psychiatric: Normal mood and affect. Skin: Normal color, warm and dry. Progress Results/Orders Reviewed/noted all lab results: Yes Results/Orders Orders - SAFIA DOSS LITIGATION SUPPORT ANALYST Chest,Single View (11/08/24 20:03) Monitor (11/08/24 20:03) Saline Lock (11/08/24 20:03) Oxygen (11/08/24 20:03) Completed Orders - SAFIA DOSS LITIGATION SUPPORT ANALYST Chest,Single View (11/08/24 20:03) Cbc/Diff (11/08/24 20:03) BMP (11/08/24 20:03) PBNP (11/08/24 20:03) Hs Troponin I W Calculations (11/08/24 20:03) Electrocardiogram (11/08/24 ) Lisinopril Tablet (Zestril Tablet) (11/08/24 22:30) Acetaminophen 325mg Tablet (Tylenol Tabl (11/08/24 22:30) Medications Received in ER Medications (Trade) Dose Ordered Sig/Waldo Route PRN Reason Start Time Stop Time Status Last Admin Dose Admin (Zestril tablet) 10 mg ONCE ONCE PO 11/08/24 22:30 11/08/24 22:36 DC 11/08/24 22:42 10 MG (Tylenol tablet) 975 mg ONCE ONCE PO 11/08/24 22:30 11/08/24 22:36 DC 11/08/24 22:42 975 MG Vital Signs 11/08/24 11/08/24 11/08/24 11/08/24 19:57 22:17 22:19 22:42 Temp 97.7 Pulse 100 90 83 Resp 18 18 16 B/P (MAP) 205/134 179/125 (143) Pulse Ox 98 99 O2 Flow Rate 0 11/08/24 22:49 Temp 98.1 Pulse 80 Resp 16 B/P (MAP) 145/100 Pulse Ox 99 Laboratory Tests Test 11/08/24 21:45 White Blood Count 7.0 Red Blood Count 5.10 Hemoglobin 14.8 Hematocrit 44.1 Mean Corpuscular Volume 86.5 Mean Corpuscular Hemoglobin 29.0 Mean Corpuscular Hemoglobin Concent 33.6 Red Cell Distribution Width 13.7 Platelet Count 252 Mean Platelet Volume 7.9 Neutrophils (%) (Auto) 56.1 Lymphocytes (%) (Auto) 31.4 Monocytes (%) (Auto) 10.7 Eosinophils (%) (Auto) 1.2 Basophils (%) (Auto) 0.6 Neutrophils # (Auto) 3.9 Lymphocytes # (Auto) 2.2 Monocytes # (Auto) 0.7 Eosinophils # (Auto) 0.1 Basophils # (Auto) 0.0 CBC Comment Sodium Level 144 Potassium Level 3.7 Chloride Level 106 Carbon Dioxide Level 28.9 Anion Gap 9 Blood Urea Nitrogen 14 Creatinine 1.07 Estimated GFR/1.73 m2 80 BUN/Creatinine Ratio 13.1 Glucose Level 97 Calcium Level 9.4 Troponin I High Sensitivity 8 Pro-B-Type Natriuretic Peptide 33 Albumin 4.0 Chemistry Comments EKG/XRAY/CT/US/VASC/MRI EKG : Additional Comment Electrocardiogram: as interpreted by me; normal sinus rhythm, no axis deviation, no acute ischemia, normal intervals, no pre-excitation pattern. Rate: 96 bpm. QTc: 428ms Chest X-Ray : Additional Comments Chest x-ray: as interpreted by me; no large effusion, no large infiltrate, normal mediastinum. Heart Score: Heart Score Response (Comments) Value History N/A 0 EKG Normal 0 Age <45 0 Risk Factors 1 or 2 risk factors 1 Troponin Normal limit 0 Total 1 Medical Decision Making Additional info obtained from: old records, family Findings 34-year-old male with elevated blood pressure during his triage which lessened during his stay in the department. His labs, ECG, and chest x-ray were unremarkable. His heart score was 1. He is not having any shortness of breath or chest pain. He was having headaches and blurry vision prior to arrival and blurry vision resolved prior to arrival but his headache remained. He states that the headache was posterior but also times where it was frontal bilaterally. No history of migraines. He is taking the starting dose of lisinopril 10 mg taken at nighttime and carvedilol 3.25 mg. He states that he has taken this medication prior to coming in. He states that he has been taking lisinopril for years and 3 months ago was started on the carvedilol. He has an appointment at the end of the month to see his primary care provider. He has been taking his blood pressures at home. I have increased his lisinopril dose to 20 mg daily and gave him a 10 mg tablet while here in the department to equal a full 20 mg. He states that he just picked up a three-month supply of the 10 mg tablets so he has plenty already and can just take 2 of the once he already owns, no new prescription sent to pharmacy. His blood pressure was 200s systolic and drop to 160s systolic so I was hesitant to give him any other medications to drop his b lood pressure further. He was given Tylenol for his headache while here in the department and he opted to be discharged home instead of wait to see if the Tylenol had affect on his headache because he has work in the morning. He was given strict return instructions and follow up with his primary care provider as scheduled. Also discussed the DASH diet and increasing his exercise. Differential Dx:Considerations: Include CHF, Include HTN, malignant, Include medical noncompliance, Include pulmonary edema, Include renal failure Departure Disposition: 01 HOME / SELF CARE / HOMELESS Impression: Primary Impression: Headache Additional Impression: Hypertension, essential Condition: Stable Discharge Instructions: DASH Eating Plan, Hypertension, Adult, [id number] Additional Instructions: Please start taking lisinopril 2 tablet (20 mg) daily instead of 1 tablet. Continue to monitor your blood pressure twice a day and keep a log to your primary care provider appointment at the end of the month. Follow up with the DASH diet, avoid processed foods, eat more fruits and vegetables and whole foods, low-salt diet. Increase exercise and maintain a healthy weight. Referrals: NO PRIMARY CARE PROVIDER (PCP) Education Educated: Patient Educated regarding: diagnosis Additional Comment Medical Screen Exam This patient recieved a medical screening examination. After reviewing the individual's medical complaints with presenting symptoms and performing an appropriate physical examination, it was determined that no immediate life- threatening emergency medical condition is present. This individual is also not a women having contractions. Signature Scribe Signature: . Attestation: Scribed for Safia Doss by Safia Spear NP . 11/08/24 23:42 SAFIA DOSS Nov 08, 2024 20:41
--- NOTE | 2024-11-08 21:20 | RADIOLOGY REPORT ---
CHEST RADIOGRAPH Indication: CP Technique: Single frontal view of the chest was obtained Comparison: CHEST,SINGLE VIEW on DOS: 07/27/19 FINDINGS: Lines and Tubes: None Lungs: No focal consolidation. Pleura: No effusion. No pneumothorax. Cardiomediastinal contours: Unremarkable Bones: No acute osseous abnormality. IMPRESSION: No acute cardiopulmonary disease.
[2024-11-08 21:58] LABS: BASOPHILS % (AUTO) 0.6 % (0-1); EOSINOPHILS # (AUTO) 0.1 X10'3 (0-0.9); EOSINOPHILS % (AUTO) 1.2 % (0-6); HEMATOCRIT 44.1 % (42.0-52.0); HEMOGLOBIN 14.8 g/dl (14.0-17.9); LYMPHOCYTES # (AUTO) 2.2 X10'3 (1.1-4.8); LYMPHOCYTES % (AUTO) 31.4 % (21-51); MEAN CORPUSCULAR HGB CONC 33.6 g/dL (33.0-36.5); MEAN CORPUSCULAR VOLUME 86.5 FL (78-98); MEAN PLATELET VOLUME 7.9 FL (7.4-10.4); MONOCYTES # (AUTO) 0.7 X10'3 (0-0.9); MONOCYTES % (AUTO) 10.7 % (2-12); NEUTROPHILS # (AUTO) 3.9 X10'3 (1.8-7.7); NEUTROPHILS % (AUTO) 56.1 % (42-75); PLATELET COUNT 252 X10'3 (140-440); RED CELL DISTRIBUTION WIDTH 13.7 % (11.5-14.5)
--- NOTE | 2024-11-08 22:17 | ELECTROCARDIOGRAPH REPORT ---
[facility] Test Date: 2024-11-08 Test Time: 20:15:35 Pat Name: PELON GUERRIER Department: EMERGENCY ROOM Room: Gender: M Machine Hose Cutter: JESI : 1990 Requested By: FERNANDO MARAVILLA Order Number: [id number] Reading MD: Measurements Intervals [place] Rate: 96 P: 44 OK: 150 QRS: 64 QRSD: 97 T: -28 QT: 338 QTc: 428 Interpretive Statements Sinus rhythm Borderline T abnormalities, inferior leads Please click the below link to view image of tracing.
[2024-11-08 22:21] LABS: ANION GAP 9 (8-16); BLOOD UREA NITROGEN 14 MG/DL (7-18); BUN/CREATININE RATIO 13.1 (10.0-20.0); CALCIUM 9.4 MG/DL (8.5-10.1); CHLORIDE 106 MMOL/L (99-107); CREATININE 1.07 MG/DL (0.60-1.10); GLUCOSE 97 MG/DL (70-104); POTASSIUM 3.7 MMOL/L (3.5-5.1); PRO BRAIN NATRIURETIC PEPTIDE 33 PG/ML (0-125); SODIUM 144 MMOL/L (135-145); TOTAL CARBON DIOXIDE 28.9 MMOL/L (24-32); eCRCL 86 ML/MIN; eGFR 80 ML/MIN
[2024-11-08] MEDS: lisinopril 10 MG tablet PO ONE (22:42)
[2024-11-08] MEDS: acetaminophen 325mg tablet PO ONE (22:42)
[2024-11-08 22:49] VITALS: BP 145/100; PULSE 80; RESP 16; TEMP 98.1; O2SAT 99
== END 2024-11-08 22:52 | disposition home or self-care (01) ==
LOC: ER 19:46
DX: I10 Essential (primary) hypertension (principal); R51.9 Headache, unspecified; F31.9 Bipolar disorder, unspecified; Z88.8 Allergy status to other drugs, medicaments and biological substances; Z88.6 Allergy status to analgesic agent; Z79.899 Other long term (current) drug therapy; Z72.89 Other problems related to lifestyle
CPT/HCPCS: 36415; 71045; 80048; 83880; 84484; 85025; 93005; 99285